=== PATIENT | male | born 1970 | race Caucasian/White ===

== ENCOUNTER 2022-01-21 23:46 | Emergency (ER) | payer SELFPAY ==
[2022-01-21 23:54] VITALS: BP 137/78; PULSE 122; RESP 18; TEMP 36.6; O2SAT 98
--- NOTE | 2022-01-21 23:58 | DI.RAD.S_ITS ---
PROCEDURE: XR HAND RT MIN 3V INDICATIONS: caught hand between chain and trailor hitch TECHNIQUE: Three views of the right hand acquired. COMPARISON: None. FINDINGS: Bones: No fractures or dislocations. Carpal bones are normally aligned. No suspicious bony lesions. Soft tissues: No suspicious soft tissue calcifications. IMPRESSION: 1. No acute fracture or subluxation. Dictated by: Jesse Solares M.D. on 01/22/2022 at 1:19 Approved by: Jesse Solares M.D. on 01/22/2022 at 1:20
--- NOTE | 2022-01-22 00:18 | ED_ITS ---
HPI - Extremity Injury (Upper) General Chief Complaint: Extremity Injury, Upper Stated Complaint: RIGHT HAND SMASHED WITH TRAILER Time Seen by Provider: 01/22/22 00:12 Source: patient Mode of arrival: Ambulatory History of Present Illness HPI narrative: 51-year-old male smoker with current tetanus and no chronic medical problems presents with a significant other and a chief complaint of an accidental injury to his right hand prior to arrival. He was positioning a trailer when his hand was caught between the tongue of the trailer and the hitch and he suffered a crush injury, primarily involving a deep, actively bleeding laceration on the dorsum of his right hand. He denies other injury and is otherwise well and free of complaint. He has full but painful range of motion and denies any numbness, tingling or weakness. Related Data Home Medications Medication Instructions Recorded Confirmed HYDROCODONE/ACET 5/500 - 0 PO * [place] DOSE/FREQUENCY ##0 12/01/06 (Hydrocodon-Acetaminophen 5-500) IBUPROFEN (Motrin / Advil) 0 PO * [place] DOSE/FREQUENCY ##0 12/01/06 Oxycodone/Acetaminophen (Percocet 0 PO * [place] DOSE/FREQUENCY ##0 12/01/06 5-325 MG Tablet) Previous Rx's Medication Instructions Recorded cephalexin 500 mg capsule 500 mg PO Q6H 7 days #28 caps 01/22/22 Review of Systems Review of Systems Narrative: GENERAL: Denies chills, fatigue, malaise, fever, sweats. HEENT: Denies sinus pain, ear pain, sore throat, difficulty swallowing, dizziness. RESPIRATORY: Denies dyspnea, cough, wheezing, hemoptysis, sputum. CARDIOVASCULAR: Denies chest pain, palpitations, orthopnea, edema, GASTROINTESTINAL: Denies nausea, vomiting, abdominal pain, diarrhea, constipation, melena. : Denies dysuria, frequency, incontinence, hematuria, urinary retention. MUSCULOSKELETAL: See HPI SKIN: See HPI NEUROLOGIC: See HPI PSYCHIATRIC: No concerning psychosocial issues. 12 point review of systems is negative except for those stated above Patient History Social History Smoking Status: Current every day smoker Smoking Status: Current every day smoker alcohol intake frequency: a few times a month Substance Use Type: does not use Exam Narrative Exam Narrative: GENERAL: [51] year old patient appears stated age. Well-developed patient, in mild distress. Rubbing his right hand which is currently wrapped HEAD: Atraumatic. Normocephalic. GCS 15 EYES: Pupils equal round and reactive. Extraocular motions intact. No scleral icterus. No injection or drainage. ENT: Nose without bleeding, purulent drainage. Throat without erythema, tonsillar hypertrophy or exudate. Airway patent. NECK: Trachea midline. Non tender CARDIOVASCULAR: Regular rate and rhythm without murmurs, gallops, or rubs. RESPIRATORY: Clear to auscultation. Breath sounds equal bilaterally. No wheezes, rales, or rhonchi. GASTROINTESTINAL: Abdomen soft, non-tender, nondistended. EXTREMITIES: Stellate laceration on dorsum of right hand overlying 3rd MCP, no obvious foreign body or obvious bony involvement, cap refill and sensation intact distal to the injury, decreased range of motion secondary to pain. When viewed in bloodless field no obvious tendon or capsule involvement BACK: Nontender without deformity or crepitance. No flank tenderness. NEURO: AOx3. SKIN: No rash or erythema of visible areas Initial Vital Signs Initial Vital Signs: Vital Signs Temperature 98 F 01/21/22 23:54 Pulse Rate 122 H 01/21/22 23:54 Respiratory Rate 18 01/21/22 23:54 Blood Pressure 137/78 01/21/22 23:54 Pulse Oximetry 98 01/21/22 23:54 Oxygen Delivery Method 01/21/22 23:54 Procedures Laceration Repair Laceration 1: Site: hand Side (If applicable): right Size (cm): 4 Description: stellate, irregular and clean Depth: involves muscle layer Local Anesthetic: bupivacaine 0.25% Amount of anesthesia used (mL): 6 Pre-repair: wound explored, irrigated extensively, deep structures intact and cleansed with chlorhexadine Skin layer closed with: nylon Skin layer suture size: 4-0 Number of sutures: 6 Technique: simple, interrupted Course Orders Ordered: Discontinued Medications Cefazolin Sodium (Cephalexin 250 Mg Prepack) 1 bottle [facility] [place] SEEINSTR ONE Stop: 01/22/22 00:26 Last Admin: 01/22/22 02:00 Dose: 250 mg Documented By: ANETA Consultations Consultation #1: discussed history, physical exam and imaging findings with on-call orthopedist. Recommends against splinting to encourage full range of motion, recommends antibiotics, tetanus, close follow-up Vital Signs Vital signs: Vital Signs - 8 hr 01/21/22 23:54 Temperature 98 F Pulse Rate 122 H Respiratory Rate 18 Blood Pressure 137/78 Pulse Oximetry 98 Oxygen Delivery Method Room Air MDM - Extremity Injury (Upper) Imaging Data Extremity x-ray #1: Radiologist's Impression: ? Chart Viewer Diagnostics Subcategory All Activity ??:?? All Time ??:?? All Subcategories Filter Laboratory Imaging Microbiology Pathology Blood Bank Tests Cardiovascular Other Specialty DATE TYPE STATUS REF RANGE/AUTHOR Hx 01/21/22 23:58 Hand X-Ray Signed Jesse Solares Christopher W ED 51, M?1970 MRN#? [id number] DEP ER,?Main ED??? 90.718kg ? Extremity Injury, Upper Acc#? [id number] Resus Status Not Ordered No Hx Avail Special Indicators No Data to Display Home Meds Not Confirmed Prescription Monitoring Program MEDICATIONS (INSTRUCTIONS) LAST TAKEN Active cephalexin 500 [id number] days#28 caps ??HYDROCODONE/ACET 5/500 - (Hydrocodon-Acetaminophen 5-500) ??0PO* [place] DOSE/FREQUENCY##0 ??IBUPROFEN (Motrin / Advil) ??0PO* [place] DOSE/FREQUENCY##0 ??Oxycodone/Acetaminophen (Percocet 5-325 MG Tablet) ??0PO* [place] DOSE/FREQUENCY##0 ?Not Included in Conflicts Allergies No Data to Display Problems ? ONSET Complicated laceration of hand Vital Signs Today 02:23 BP 142/84?H Pulse 78? Resp 16? O2 Sat 98? Delivery Room Air? Diagnostics Reports Fuad Fierro??51??M??1970 ? Allergy/Adv: Not Recorded Close Hand X-Ray (Signed) Jesse Solares - 01/21/22 Launch?[address] [address] XRay Report Signed Patient: Fuad Fierro MR#: [id number] : 1970 Acct:[id number] Age/Sex: 51 / M Date of Service: 01/21/22 Loc: ED Accession Number: [id number] ?? Procedure: XR hand RT min 3V Ordering Provider: Rickey Sandhu D.O. PROCEDURE:? XR HAND RT MIN 3V ? INDICATIONS:? caught hand between chain and trailor hitch ? TECHNIQUE:? Three views of the right hand acquired.? ? COMPARISON:? None. ? FINDINGS:? ? Bones:? No fractures or dislocations.? Carpal bones are normally aligned.? No suspicious bony lesions.? ? Soft tissues:? No suspicious soft tissue calcifications.? ? ? IMPRESSION:? ? 1. No acute fracture or subluxation. ? ? Dictated by: Jesse Solares M.D. on 01/22/2022 at 1:19 ? ? Approved by: Jesse Solares M.D. on 01/22/2022 at 1:20? Discharge Plan Departure Patient Disposition: Home Clinical Impression: Complicated laceration of hand Instructions: DI for Laceration Repair Activity Restrictions/Additional Instructions: *You have been diagnosed with [crush injury of right hand with laceration repair. As we discussed your x-ray is reassuring and there is no evidence of fracture or dislocation. Six sutures have been placed to repair this deep laceration on your hand. It is important to keep the wound clean and dry and take antibiotics as directed. As mentioned, I have included contact information for [facility] which can be noted below. Please call them, let them know you were seen in the emergency department and we would like you seen in follow-up] *What to do: *Please continue to take your regular medications as directed. [ x] New medication prescriptions sent to your pharmacy: [[facility] ] [ ] New medication written as a paper prescription [ ] No new medications given * Please keep the wound clean and dry to the best of your ability. Please monitor for signs of infection such as redness to the skin or increasing pain. Have the sutures removed by your doctor (or ortho) in about 7-10 days. If you are unable to get into your doctor, we would be happy to remove the sutures in that same timeframe. *Return to Emergency Department if you should have any new, worsening or concerning symptoms, such as [fever greater than 101 F, shaking chills, worsening pain, persistent vomiting or other bothersome symptoms] Prescriptions: New cephalexin 500 mg capsule 500 mg PO Q6H 7 Days Qty: 28 0RF No Action HYDROCODONE/ACET 5/500 - (Hydrocodon-Acetaminophen 5-500) 0 PO * DOSE/FREQUENCY Qty: 0 IBUPROFEN (Motrin / Advil) 0 PO * DOSE/FREQUENCY Qty: 0 Oxycodone/Acetaminophen (Percocet 5-325 MG Tablet) 0 PO * DOSE/FREQUENCY Qty: 0 Visit Report Forms: Patient Portal/API
--- NOTE | 2022-01-22 00:34 | PC.NURSE ---
Patients hand soaking in warm water
[2022-01-22] MEDS: cephALEXin 250 MG PREPACK 1 BOTTLE MISC (02:00)
[2022-01-22 02:23] VITALS: BP 142/84; PULSE 78; RESP 16; O2SAT 98
== END 2022-01-22 02:24 | disposition home or self-care (01) ==
PROVIDERS: Emergency Provider Emergency Medicine
DX: S66.821A Laceration of other specified muscles, fascia and tendons at wrist and hand level, right hand, initial encounter (principal); W23.0XXA Caught, crushed, jammed, or pinched between moving objects, initial encounter
CPT/HCPCS: 13132; 73130; 99283